=== PATIENT | female | born 1965 | race Caucasian/White ===

== ENCOUNTER 2016-04-19 11:01 | Inpatient (IN) | payer MEDICARE, MEDICAID ==
[~2016-04-19 11:01] MED LIST: ADVAIR 5001 DISK W/D INH; AVINZA120 MG PO; BACLOFEN10 MG PO; BACLOFEN20 M1 PO; BACLOFEN20 MG; BACLOFEN20 MG PO; BACTRIM DS TAB1 EAC2 PO; BUPROPION XL300 M1 PO; CALCIUM CITRAT1 EA25 PO; CALTRATE 600 +1 EAC2 PO; CATAPRES0.1 M1 PO; CELEBREX100 M1 PO; CELEBREX200 M1 PO; CYCLOBENZAPRINE10 M1 PO; CYCLOBENZAPRINE10 MG PO; ESTRADIOL1 MG PO; FLAGYL500 MG PO; FOLIC ACID1 M1 PO; FOSAMAX70 M1 PO; GABAPENTIN800 M1 PO; GABAPENTIN800 MG PO; HIPREX1 GM PO; HYDROCHLOROTHIA25 MG PO; IBUPROFEN200 M1 PO; INCRUSE ELLI62.5 MCG INH; LASIX PO; LASIX20 MG PO; LEVOXYL50 MCG PO; LEXAPRO10 MG PO; LIDODERM30 EA TOP; LINZESS145 MC1 PO; LINZESS290 MC1 PO; LYRICA150 MG/CAP PO; LYRICA75 MG/CAP PO; MELOXICAM15 M1 PO; MIRALAX17 G1 PO; MIRALAX17 G2 PO; MIRTAZAPINE45 M1 PO; NAPROSYN500 MG PO; NAPROXEN500 MG PO; NEURONTIN300 M1 PO; NEURONTIN300 MG PO; NEURONTIN800 MG; NEURONTIN800 MG PO; NEXIUM20 M1 PO; NORCO 5-325 TA1 EACH PO; NORCO 5/325 TAB1 TAB PO; OLEPTRO ER150 M1 PO; OMEPRAZOLE20 M2 PO; OXYCONTIN20 MG; PEN-VEE K500 MG PO; PENICILLIN V P500 M1 PO; PRILOSEC20 MG PO; PROVENTIL HFA6.7 G1 INH; PROVENTIL HFA6.7 GM IH; REGLAN10 M1 PO; REGLAN10 M2 PO; REMERON; REMERON30 MG PO; RESTORIL15 M1 PO; RESTORIL15 MG PO; RISPERDAL2 M2 PO; RISPERDAL4 M1 PO; SPIRIVA18 MCG IH; SSD20 GM TOP; SYMBICORT 160-1 PUFF INH; SYMBICORT 160-4.6 GM IH; SYNTHROID75 MC1 PO; TRAZODONE HCL100 M1 PO; TRILEPTAL150 M1 PO; TRILEPTAL150 M2 PO; TRILEPTAL150 MG PO; TYLENOL WITH C1 EACH PO; VESICARE5 M1 PO; VITAMIN C500 M3 PO; VITAMIN D-32000 UNI4 PO; WELLBUTRIN SR150 M2 PO; ZITHROMAX250MG Z-PAK PO; [UNRECOGNIZED DRUG - REMARK]
[2016-04-19 11:54] LABS: BASO % 0.4 % (0-2); EOS % 1.3 % (0-7); EOSINOPHIL ABSOLUTE COUNT 0.1 tho/cmm (0.0-0.7); HCT-HEMATOCRIT 34.9 % (34.0-49.0); HGB-HEMOGLOBIN 11.8 gm/dl (12.0-15.5); IMMATURE GRANULOCYTES ABSOLUTE 0.01 tho/cmm (0-0.03); IMMATURE GRANULOCYTES PERCENT 0.1 % (0-0.3); LYMPH % 21.5 % (20-45); LYMPH ABSOLUTE COUNT 1.5 tho/cmm (0.8-4.5); MCH (MEAN CORPUSCULAR HGB) 29.9 pg (28.0-32.0); MCHC MEAN CORPUSCULAR HGB CONC 33.8 % (32.0-36.0); MCV (MEAN CELL VOLUME) 88.4 fl (82.0-96.0); MEAN PLATELET VOLUME 9.1 cmc (9.4-12.4); MONO % 6.1 % (0-12); MONOCYTE ABSOLUTE COUNT 0.4 tho/cmm (0.0-1.2); NEUTROPHIL ABSOLUTE COUNT 4.9 tho/cmm (1.6-8.0); NEUTROPHIL-AUTOMATED 4.9 tho/cmm (1.6-8.0); NEUTROPHILS % 70.6 % (40-80); PLATELET COUNT 239 tho/cmm (150-450); RED BLOOD COUNT 3.95 mil/cmm (4.00-5.20); RED CELL DISTRIBUTION WIDTH 13.1 % (12.4-16.4); WHITE BLOOD COUNT 6.9 tho/cmm (4.0-10.0)
[2016-04-19 12:11] LABS: ANION GAP 15 mmol/L (0-20); BLOOD UREA NITROGEN 8 mg/dl (6-24); CALCIUM 9.2 mg/dl (8.5-10.5); CARBON DIOXIDE-VENOUS 26 mmol/L (22-32); CHLORIDE 104 mmol/l (96-110); CREATININE 0.66 mg/dl (0.50-1.10); GLUCOSE 106 mg/dL (70-110); SODIUM 140 mmol/L (135-145); eGFR VALUE FOR BLACK >90 mL/Min
[2016-04-19 12:14] LABS: POTASSIUM 4.5 mmol/L (3.7-5.1)
[2016-04-19 12:15] LABS: PROTHROMBIN TIME 11.8 SECONDS (9.0-13.6)
[2016-04-26] MEDS ORDERED: PREDNISONE10 M1 PO (16:14)
[2016-09-28] MEDS ORDERED: LYRICA50 MG/CAP PO (16:36)
[2016-09-28] MEDS ORDERED: FEOSOL325 M1 PO (16:39)
[2016-09-28] MEDS ORDERED: RISPERDAL3 M2 PO (16:42)
[2016-09-28] MEDS ORDERED: REMERON15 M1 PO (16:43)
[2016-09-28] MEDS ORDERED: ULTRAM50 M1 PO (16:44)
[2016-09-28] MEDS ORDERED: RESTORIL30 M1 PO (16:45)
[2016-09-28] MEDS ORDERED: CIPRO500 M2 PO (16:48)
[2016-09-28] MEDS ORDERED: ACETAMINOPHEN-1 EAC3 PO (16:50)
[2016-09-28] MEDS ORDERED: CLEARLAX119 G1 PO (16:51)
[2016-09-30] MEDS ORDERED: AUGMENTIN 875-1 EAC2 PO (13:45)
[2016-09-30] MEDS ORDERED: ZITHROMAX500 M2 PO (13:46)
== END 2016-04-19 13:25 | DRG 554 ==
LOC: SHSC 11:01
PROVIDERS: ADMIT Orthopaedic Surgery
DX: M17.11 Unilateral primary osteoarthritis, right knee (principal); E87.8 Other disorders of electrolyte and fluid balance, not elsewhere classified; E87.1 Hypo-osmolality and hyponatremia; J44.1 Chronic obstructive pulmonary disease with (acute) exacerbation; Z53.8 Procedure and treatment not carried out for other reasons; K59.00 Constipation, unspecified; K21.9 Gastro-esophageal reflux disease without esophagitis; N31.9 Neuromuscular dysfunction of bladder, unspecified; R21 Rash and other nonspecific skin eruption; E03.9 Hypothyroidism, unspecified; G47.00 Insomnia, unspecified; Z90.710 Acquired absence of both cervix and uterus; Z90.49 Acquired absence of other specified parts of digestive tract; Z87.891 Personal history of nicotine dependence; Z87.440 Personal history of urinary (tract) infections
CPT/HCPCS: J3301

== ENCOUNTER 2016-04-27 08:05 | Inpatient (IN) | payer MEDICARE, MEDICAID ==
[~2016-04-27 08:05] MED LIST changes: +PREDNISONE10 M1 PO
[2016-04-28 05:29] LABS: HCT-HEMATOCRIT 26.8 % (34.0-49.0); HGB-HEMOGLOBIN 9.2 gm/dl (12.0-15.5); IMMATURE GRANULOCYTES ABSOLUTE 0.03 tho/cmm (0-0.03); IMMATURE GRANULOCYTES PERCENT 0.3 % (0-0.3); LYMPH % 19.1 % (20-45); LYMPH ABSOLUTE COUNT 1.8 tho/cmm (0.8-4.5); MCH (MEAN CORPUSCULAR HGB) 29.9 pg (28.0-32.0); MCHC MEAN CORPUSCULAR HGB CONC 34.3 % (32.0-36.0); MEAN PLATELET VOLUME 8.9 cmc (9.4-12.4); MONO % 10.7 % (0-12); NEUTROPHIL ABSOLUTE COUNT 6.5 tho/cmm (1.6-8.0); NEUTROPHIL-AUTOMATED 6.5 tho/cmm (1.6-8.0); NEUTROPHILS % 69.9 % (40-80); PLATELET COUNT 308 tho/cmm (150-450); RED BLOOD COUNT 3.08 mil/cmm (4.00-5.20); RED CELL DISTRIBUTION WIDTH 13.1 % (12.4-16.4); WHITE BLOOD COUNT 9.3 tho/cmm (4.0-10.0)
[2016-04-29 16:59] LABS: URINE BILIRUBIN NEGATIVE (NEG); URINE BLOOD NEGATIVE (NEG); URINE GLUCOSE (UA) NEGATIVE (NEG); URINE KETONE NEGATIVE (NEG); URINE LEUKOCYTE ESTERASE NEGATIVE (NEG); URINE NITRITE NEGATIVE (NEG); URINE PH 6.5 (5.0-8.0); URINE PROTEIN NEGATIVE (NEG); URINE SPECIFIC GRAVITY 1.005 (1.003-1.030)
[2016-04-29 17:09] LABS: URINE APPEARANCE CLEAR; URINE COLOR YELLOW
[2016-04-30] MEDS ORDERED: TYLENOL WITH C1 EACH PO (10:26)
[2016-09-28] MEDS ORDERED: LYRICA50 MG/CAP PO (16:36)
[2016-09-28] MEDS ORDERED: FEOSOL325 M1 PO (16:39)
[2016-09-28] MEDS ORDERED: RISPERDAL3 M2 PO (16:42)
[2016-09-28] MEDS ORDERED: REMERON15 M1 PO (16:43)
[2016-09-28] MEDS ORDERED: ULTRAM50 M1 PO (16:44)
[2016-09-28] MEDS ORDERED: RESTORIL30 M1 PO (16:45)
[2016-09-28] MEDS ORDERED: CIPRO500 M2 PO (16:48)
[2016-09-28] MEDS ORDERED: ACETAMINOPHEN-1 EAC3 PO (16:50)
[2016-09-28] MEDS ORDERED: CLEARLAX119 G1 PO (16:51)
[2016-09-30] MEDS ORDERED: AUGMENTIN 875-1 EAC2 PO (13:45)
[2016-09-30] MEDS ORDERED: ZITHROMAX500 M2 PO (13:46)
== END 2016-04-30 13:19 | disposition home health service (06) | DRG 470 ==
LOC: SHSB 08:05 → ORE 10:07 → PACU 12:55 → 5EA 14:25
PROVIDERS: ADMIT Orthopaedic Surgery
PROC: 0SRC0J9 Replacement of Right Knee Joint with Synthetic Substitute, Cemented, Open Approach (ICD-10-PCS; principal; 2016-04-27)
DX: M17.31 Unilateral post-traumatic osteoarthritis, right knee (principal); N31.9 Neuromuscular dysfunction of bladder, unspecified; I10 Essential (primary) hypertension; X58.XXXS Exposure to other specified factors, sequela; J44.9 Chronic obstructive pulmonary disease, unspecified; E03.9 Hypothyroidism, unspecified; K21.9 Gastro-esophageal reflux disease without esophagitis; M81.0 Age-related osteoporosis without current pathological fracture; K59.00 Constipation, unspecified; Z87.891 Personal history of nicotine dependence
CPT/HCPCS: C1713; C1776; J0171; J0690; J1170; J1885; J2270; J2310; J2795; J3010

== ENCOUNTER 2016-10-29 17:10 | Emergency (ER) | payer MEDICARE, MEDICAID ==
[~2016-10-29] VITALS: Ht 149.9 cm; Wt 61.3 kg
[~2016-10-29 17:10] MED LIST changes: +ACETAMINOPHEN-1 EAC3 PO; +AUGMENTIN 875-1 EAC2 PO; +CIPRO500 M2 PO; +CLEARLAX119 G1 PO; +FEOSOL325 M1 PO; +LYRICA50 MG/CAP PO; +REMERON15 M1 PO; +RESTORIL30 M1 PO; +RISPERDAL3 M2 PO; +ULTRAM50 M1 PO; +ZITHROMAX500 M2 PO
[2016-10-29] MEDS ORDERED: NORCO 5-325 TA1 EACH PO (18:59)
[2016-10-29] MEDS ORDERED: MEDROL4 M2 PO (18:59)
== END 2016-10-29 19:05 ==
LOC: EDMED 17:10
DX: M79.2 Neuralgia and neuritis, unspecified (principal); G89.29 Other chronic pain; J44.9 Chronic obstructive pulmonary disease, unspecified; Z90.710 Acquired absence of both cervix and uterus; Z79.51 Long term (current) use of inhaled steroids; Z79.899 Other long term (current) drug therapy